=== PATIENT | female | born 1990 | race Caucasian/White ===

== ENCOUNTER 2017-03-06 08:08 | Emergency (ER) | payer OTHER ==
[2017-03-06 08:13] VITALS: BP 127/72; PULSE 81; RESP 18; TEMP 97.5
[2017-03-06] MEDS ORDERED: predniSONE 50 MG TAB PO STA (08:19)
[2017-03-06] MEDS ORDERED: diphenhydrAMINE 50 MG CAP PO STA (08:19)
[2017-03-06] MEDS ORDERED: FAMOTIDINE 20 MG TAB PO STA (08:19)
--- NOTE | 2017-03-06 08:21 | ED ---
Skin/Abscess/FB HPI - General Chief complaint: Skin/Abscess/Foreign Body Stated complaint: RASH ALL OVER Time Seen by Provider: 03/06/17 08:14 Source: patient, RN notes reviewed Mode of arrival: ambulatory Limitations: no limitations - History of Present Illness Initial comments: 27-year-old female presents emergency Department chief complaint of rash. Patient states that since last night and got worse today. Patient states that it is very itchy and has spread. Patient states he look like hives. She denies any new products including soaps, lotions, detergents. Patient states that she was helped by a bonfire last night but she states that she used wood that she didn't having on it and states that nobody else has any symptoms. Patient denies any difficulty breathing or difficulty swallowing. - Related Data Previous Rx's Medication Instructions Recorded diphenhydrAMINE [Benadryl] 50 mg PO QID PRN #20 capsule 03/06/17 methylPREDNISolone [Medrol Dose 4 mg PO DIRECTED #1 pack 03/06/17 Pack] Allergies Allergy/AdvReac Type Severity Reaction Status Date / Time Sulfa (Sulfonamide Allergy Swelling Verified 03/06/17 08:13 Antibiotics) Review of Systems ROS Statement: Those systems with pertinent positive or pertinent negative responses have been documented in the HPI. ROS Other: All systems not noted in ROS Statement are negative. Past Medical History Past Medical History: No Reported History History of Any Multi-Drug Resistant Organisms: None Reported Past Surgical History: Section Past Psychological History: Anxiety, Depression Smoking Status: Never smoker Past Alcohol Use History: None Reported Past Drug Use History: None Reported General Exam Limitations: no limitations General appearance: alert, in no apparent distress Neck exam: Present: normal inspection. Absent: tenderness, meningismus, lymphadenopathy Respiratory exam: Present: normal lung sounds bilaterally. Absent: respiratory distress, wheezes, rales, rhonchi, stridor Cardiovascular Exam: Present: regular rate, normal rhythm, normal heart sounds. Absent: systolic murmur, diastolic murmur, rubs, gallop, clicks GI/Abdominal exam: Present: soft, normal bowel sounds. Absent: distended, tenderness, guarding, rebound, rigid Skin exam: Present: rash (Urticaria noted on upper legs, torso region with some areas of papular type rash) Course Vital Signs 03/06/17 08:09 Temperature 97.5 F L Pulse Rate 81 Respiratory 18 Rate Blood Pressure 127/72 O2 Sat by Pulse 100 Oximetry Medical Decision Making - Medical Decision Making 47-year-old female presented for rash. She appears to be having a mild ALLERGIC reaction and some areas of contact dermatitis which may be related. Patient we given Benadryl and steroids. Return parameters were discussed. Disposition Clinical Impression: Allergic reaction, Contact dermatitis Disposition: HOME SELF-CARE Condition: Stable Instructions: General Allergic Reaction (ED) Additional Instructions: Please return to the Emergency Department if symptoms worsen or any other concerns. Prescriptions: diphenhydrAMINE [Benadryl] 50 mg PO QID PRN #20 capsule PRN Reason: allergic symtpoms methylPREDNISolone [Medrol Dose Pack] 4 mg PO DIRECTED #1 pack Referrals: None,Stated [Primary Care Provider] - 1-2 days Time of Disposition: 08:20
== END 2017-03-06 08:45 | disposition home or self-care (01) ==
LOC: EC 08:08
DX: L23.9 Allergic contact dermatitis, unspecified cause (principal); Z88.2 Allergy status to sulfonamides
CPT/HCPCS: 99282; J7512

== ENCOUNTER 2018-02-04 08:34 | Emergency (ER) | payer OTHER ==
[2018-02-04] MEDS ORDERED: ACETAMINOPHEN TAB 500 MG TAB PO STA (08:39)
[2018-02-04] MEDS ORDERED: IBUPROFEN 600 MG TAB PO STA (08:39)
--- NOTE | 2018-02-04 09:14 | ED ---
ENT HPI - General Chief complaint: ENT Stated complaint: Fever, Sore throat Time Seen by Provider: 02/04/18 08:39 Source: patient, RN notes reviewed, old records reviewed Mode of arrival: ambulatory Limitations: no limitations - History of Present Illness Initial comments: This Patient is a 27-year-old female presents with cough, sore throat, and fevers for the past 2 days. She reports her son had similar symptoms a few weeks ago. Patient relates that she's had some Tylenol earlier today. She denies any vomiting, nausea or diarrhea. She denies any abdominal pain or chest pain. Does report a minor headache. She states that she has had no significant medical history or surgical history. - Related Data Home Medications Medication Instructions Recorded Confirmed Acetaminophen Tab [Tylenol Tab] 1,000 mg PO ONCE PRN 02/04/18 02/04/18 Previous Rx's Medication Instructions Recorded Azithromycin [Zithromax Z-pack] 250 mg PO DIRECTED #6 tab 02/04/18 Allergies Allergy/AdvReac Type Severity Reaction Status Date / Time Sulfa (Sulfonamide Allergy Swelling Verified 02/04/18 08:50 Antibiotics) Review of Systems ROS Statement: Those systems with pertinent positive or pertinent negative responses have been documented in the HPI. ROS Other: All systems not noted in ROS Statement are negative. Past Medical History Past Medical History: No Reported History History of Any Multi-Drug Resistant Organisms: None Reported Past Surgical History: Section Past Psychological History: Anxiety, Depression Smoking Status: Never smoker Past Alcohol Use History: None Reported Past Drug Use History: None Reported General Exam - General Exam Comments Initial Comments: 27-year-old female. Alert and oriented. No acute distress. Limitations: no limitations General appearance: alert Head exam: Present: atraumatic, normocephalic, normal inspection Eye exam: Present: normal appearance, PERRL, EOMI. Absent: scleral icterus, conjunctival injection, periorbital swelling ENT exam: Present: normal exam, mucous membranes moist. Absent: normal oropharynx (Reynaldo erythema. No exudates.) Neck exam: Present: normal inspection, lymphadenopathy. Absent: tenderness, meningismus Respiratory exam: Present: normal lung sounds bilaterally. Absent: respiratory distress, wheezes, rales, rhonchi, stridor Cardiovascular Exam: Present: regular rate, normal rhythm, normal heart sounds. Absent: systolic murmur, diastolic murmur, rubs, gallop, clicks GI/Abdominal exam: Present: soft, normal bowel sounds. Absent: distended, tenderness, guarding, rebound, rigid Extremities exam: Present: normal inspection, full ROM, normal capillary refill. Absent: tenderness, pedal edema, joint swelling, calf tenderness Back exam: Present: normal inspection Neurological exam: Present: alert, oriented X3, CN II-XII intact Course Vital Signs 02/04/18 02/04/18 08:36 09:33 Temperature 100.0 F H 99.1 F Pulse Rate 101 H 65 Respiratory 20 16 Rate Blood Pressure 115/67 110/60 O2 Sat by Pulse 99 99 Oximetry Medical Decision Making - Medical Decision Making 27-year-old female with sore throat and fever and cough for the past 3 days. Her son had similar symptoms. At this time rapid strep and influenza are negative. She didn't appear 101. Was given Motrin and Tylenol. She does feel better at this time. Patient will be started on azithromycin for pharyngitis and upper respiratory infection. Discussed appropriate follow-up with primary care providers. She is given a note for work. All questions answered and return parameters were discussed. - Lab Data Lab Results 02/04/18 Range/Units 08:49 Influenza Type A RNA Not Detected (Not Detectd) Influenza Type B (PCR) Not Detected (Not Detectd) Group A Strep Rapid Negative (Negative) Disposition Clinical Impression: Pharyngitis, Fever Disposition: HOME SELF-CARE Condition: Good Additional Instructions: Patient has a take the medication as directed. Follow-up with primary care physician. Alternate Motrin and Tylenol for fever and pain. Prescriptions: Azithromycin [Zithromax Z-pack] 250 mg PO DIRECTED #6 tab Is patient prescribed a controlled substance at d/c from ED?: No When asked, does pt state using other controlled substances?: No If prescribed controlled substance>3 days was MAPS reviewed?: No If opioid is for acute pain is fill amount 7 days or less?: No Referrals: None,Stated [Primary Care Provider] - 1-2 days Time of Disposition: 09:37
[2018-02-04 09:35] VITALS: BP 110/60; PULSE 65; RESP 16; TEMP 99.1
== END 2018-02-04 09:55 | disposition home or self-care (01) ==
LOC: EC 08:34
DX: J02.9 Acute pharyngitis, unspecified (principal); Z88.2 Allergy status to sulfonamides
CPT/HCPCS: 87081; 87430; 87502; 99284

== ENCOUNTER 2018-03-24 11:50 | Emergency (ER) | payer OTHER ==
[2018-03-24 12:16] VITALS: BP 111/72; PULSE 68; RESP 18; TEMP 98.4
[2018-03-24] MEDS ORDERED: Acetaminophen-Codeine 300-30mg TAB PO STA (12:40)
--- NOTE | 2018-03-24 12:54 | ED ---
General Adult HPI - General Chief complaint: Dental/Oral Stated complaint: DENTAL PAIN Time Seen by Provider: 03/24/18 12:30 Source: patient, RN notes reviewed Mode of arrival: ambulatory Limitations: no limitations - History of Present Illness Initial comments: 28-year-old female presents to the emergency department for a chief complaint of dental pain 3 days. Patient states she cracked her tooth 3 days ago and the pain started then. Patient states she has been trying to get into a dentist but has been unsuccessful. Patient states she feels like she has swelling in her jaw. Patient denies pain or stiffness in the neck. Patient also admits to pain radiating to the ear. Patient denies headache. Patient denies fevers or chills at home. Patient has no other complaints at this time including shortness of breath, chest pain, abdominal pain, nausea or vomiting, headache, or visual changes. - Related Data Previous Rx's Medication Instructions Recorded Acetaminophen-Codeine 300-30mg 1 tab PO Q6HR PRN #10 tablet 03/24/18 [Tylenol #3] Ibuprofen [Motrin] 600 mg PO Q6HR PRN #20 tab 03/24/18 Penicillin V Potassium [Pen Vee K] 500 mg PO Q6H 10 Days tablet 03/24/18 Allergies Allergy/AdvReac Type Severity Reaction Status Date / Time Sulfa (Sulfonamide Allergy Swelling Verified 03/24/18 12:16 Antibiotics) Review of Systems ROS Statement: Those systems with pertinent positive or pertinent negative responses have been documented in the HPI. ROS Other: All systems not noted in ROS Statement are negative. Past Medical History Past Medical History: No Reported History History of Any Multi-Drug Resistant Organisms: None Reported Past Surgical History: Section Past Psychological History: Anxiety, Depression Smoking Status: Never smoker Past Alcohol Use History: Occasional Past Drug Use History: None Reported General Exam Limitations: no limitations General appearance: alert, in no apparent distress Head exam: Present: atraumatic, normocephalic, normal inspection Eye exam: Present: normal appearance ENT exam: Present: normal exam, mucous membranes moist, TM's normal bilaterally , normal external ear exam. Absent: normal oropharynx (patient has a cracked tooth 19. No abscess noted. minor swelling to left mandible.) Neck exam: Present: normal inspection, full ROM. Absent: tenderness, meningismus, lymphadenopathy Respiratory exam: Present: normal lung sounds bilaterally. Absent: respiratory distress, wheezes, rales, rhonchi, stridor Cardiovascular Exam: Present: regular rate, normal rhythm, normal heart sounds. Absent: systolic murmur, diastolic murmur, rubs, gallop, clicks Course Vital Signs 03/24/18 12:14 Temperature 98.4 F Pulse Rate 68 Respiratory 18 Rate Blood Pressure 111/72 O2 Sat by Pulse 99 Oximetry Medical Decision Making - Medical Decision Making 28-year-old female presents to the emergency department for a chief complaint of dental pain 3 days. Patient cracked her tooth 3 days ago. Patient states she has tried Motrin and it is not helping. Patient has minor swelling in the left jaw. No swelling in the neck. Patient has full range of motion of the neck. On exam patient is a cracked tooth 19. No drainable abscess noted. Patient will be given penicillin as well as Motrin for pain. She will be given Tylenol 3 if pain is severe. Patient denies chance of . Patient will follow up with primary care or dentist. She was given the number to the [place] [facility]. She will return to the emergency Department if she has any worsening symptoms. Disposition Clinical Impression: Pain, dental Disposition: HOME SELF-CARE Condition: Good Instructions: Toothache (ED) Additional Instructions: Please take penicillin as directed. Please take Motrin for pain. If pain is severe take Tylenol 3. Follow-up with dentist as soon as possible. Return to the emergency department if you have any worsening symptoms. [facility] dental plan: [address] [place] [address]. Prescriptions: Acetaminophen-Codeine 300-30mg [Tylenol #3] 1 tab PO Q6HR PRN #10 tablet PRN Reason: Pain Ibuprofen [Motrin] 600 mg PO Q6HR PRN #20 tab PRN Reason: Pain Penicillin V Potassium [Pen Vee K] 500 mg PO Q6H 10 Days tablet Is patient prescribed a controlled substance at d/c from ED?: Yes When asked, does pt state using other controlled substances?: No If prescribed controlled substance>3 days was MAPS reviewed?: Prescribed <3 Days If opioid is for acute pain is fill amount 7 days or less?: Yes If Rx opioid, was Start Talking consent form obtained?: Yes Referrals: Radu Whyte DO [STAFF PHYSICIAN] - 1-2 days Time of Disposition: 12:51
== END 2018-03-24 12:58 | disposition home or self-care (01) ==
LOC: EC 11:50
DX: K08.89 Other specified disorders of teeth and supporting structures (principal)
CPT/HCPCS: 99282

== ENCOUNTER 2018-08-20 11:04 | Emergency (ER) | payer OTHER ==
[2018-08-20 11:17] VITALS: BP 111/73; PULSE 93; RESP 18; TEMP 98.1
--- NOTE | 2018-08-20 11:48 | ED ---
General Adult HPI - General Chief complaint: Upper Respiratory Infection Stated complaint: Fever Time Seen by Provider: 08/20/18 11:22 Source: patient, RN notes reviewed Mode of arrival: ambulatory Limitations: no limitations - History of Present Illness Initial comments: Patient 28-year-old female presenting to the emergency room today with chief complaint of cough congestion over the last 10 days. She does admit that her son was diagnosed with strep throat. She states that she had this some sore throat but his had increased sinus congestion and she does admit some pressure ears. Patient admits to sinus headache. Patient does admit to mild cough but states that actually has gotten better. She states she was unable go to work yesterday and called in today. She denies any other complaints or symptoms. Patient denies any recent shortness of breath, chest pain, back pain, abdominal pain, dysuria or hematuria, constipation or diarrhea, visual changes, or any other complaints. - Related Data Previous Rx's Medication Instructions Recorded Amoxicillin/Potassium Clav 1 each PO Q12HR #20 tab 08/20/18 [Augmentin 875-125 Tablet] Fluticasone Propionate [Flonase 1 - 2 spray EA NOSTRIL DAILY 5 08/20/18 Allergy Relief] Days ml Allergies Allergy/AdvReac Type Severity Reaction Status Date / Time Sulfa (Sulfonamide Allergy Swelling Verified 08/20/18 11:15 Antibiotics) Review of Systems ROS Statement: Those systems with pertinent positive or pertinent negative responses have been documented in the HPI. ROS Other: All systems not noted in ROS Statement are negative. Past Medical History Past Medical History: No Reported History History of Any Multi-Drug Resistant Organisms: None Reported Past Surgical History: Section Past Psychological History: Anxiety, Depression Smoking Status: Never smoker Past Alcohol Use History: Occasional Past Drug Use History: None Reported General Exam - General Exam Comments Initial Comments: General: The patient is awake and alert, in no distress, and does not appear acutely ill. Eye: Pupils are equal, round and reactive to light, extra-ocular movements are intact. No nystagmus. There is normal conjunctiva bilaterally. No signs of icterus. Ears, nose, mouth and throat: There are moist mucous membranes and no oral lesions. Tender palpation over the left maxillary sinus. Lungs clear bilaterally. Neck: The neck is supple, there is no tenderness or JVD. Cardiovascular: There is a regular rate and rhythm. No murmur, rub or gallop is appreciated. Respiratory: Lungs are clear to auscultation, respirations are non-labored, breath sounds are equal. No wheezes, stridor, rales, or rhonchi. Musculoskeletal: Normal ROM, no tenderness. Neurological: A&O x 3. CN II-XII intact, There are no obvious motor or sensory deficits. Coordination appears grossly intact. Speech is normal. Skin: Skin is warm and dry and no rashes or lesions are noted. Psychiatric: Cooperative, appropriate mood & affect, normal judgment. Limitations: no limitations Course Vital Signs 08/20/18 11:15 Temperature 98.1 F Pulse Rate 93 Respiratory 18 Rate Blood Pressure 111/73 O2 Sat by Pulse 98 Oximetry Medical Decision Making - Medical Decision Making Patient will be treated for sinus infection started on Flonase, Augmentin. She was also in contact with someone with strep throat recently. She is advised follow family doctor. She is requesting work note. Patient will be discharged home advised return if symptoms increase or worsen. Disposition Clinical Impression: Sinusitis Disposition: HOME SELF-CARE Condition: Good Instructions: Sinusitis (ED) Additional Instructions: Please use medication as discussed. Please follow-up with family doctor in the next 2 days of symptoms have not improved. Please return to emergency room if the symptoms increase or worsen or for any other concerns. Prescriptions: Amoxicillin/Potassium Clav [Augmentin 875-125 Tablet] 1 each PO Q12HR #20 tab Fluticasone Propionate [Flonase Allergy Relief] 1 - 2 spray EA NOSTRIL DAILY 5 Days ml Is patient prescribed a controlled substance at d/c from ED?: No Referrals: None,Stated [Primary Care Provider] - 1-2 days Time of Disposition: 11:48
== END 2018-08-20 12:03 | disposition home or self-care (01) ==
LOC: EC 11:04
DX: J32.9 Chronic sinusitis, unspecified (principal); Z88.2 Allergy status to sulfonamides
CPT/HCPCS: 99283

== ENCOUNTER 2018-10-28 15:21 | Emergency (ER) | payer OTHER ==
[2018-10-28 15:27] VITALS: BP 118/75; PULSE 72; RESP 16; TEMP 98.4
[2018-10-28] MEDS ORDERED: PROPARACAINE 0.5% OPHTH DROPS 15 ML BTL RIGHT EYE STA (16:25)
--- NOTE | 2018-10-28 16:29 | ED ---
General Adult HPI - General Chief complaint: Eye Problems Stated complaint: Eye infection Time Seen by Provider: 10/28/18 15:42 Source: patient, RN notes reviewed Mode of arrival: ambulatory Limitations: no limitations - History of Present Illness Initial comments: Patient is a 28-year-old female who presents emergency department with complaint of right eye discomfort and redness for 5 days. Admits to watery discharge of this eye. She reports that she does wear contacts that are changed monthly. She states that she threw away her last pair and tried using a new pair. She's been wearing her glasses mostly. Denies any redness or swelling of the eyelids. Denies any issues with the left eye. Denies history of corneal ulcers. Patient denies any recent fever, chills, shortness of breath , chest pain, back pain, abdominal pain, nausea or vomiting, numbness or tingling, headaches or visual changes, or any other complaints. - Related Data Previous Rx's Medication Instructions Recorded Amoxicillin/Potassium Clav 1 each PO Q12HR #20 tab 08/20/18 [Augmentin 875-125 Tablet] Fluticasone Propionate [Flonase 1 - 2 spray EA NOSTRIL DAILY 5 08/20/18 Allergy Relief] Days ml Allergies Allergy/AdvReac Type Severity Reaction Status Date / Time Sulfa (Sulfonamide Allergy Swelling Verified 10/28/18 15:27 Antibiotics) Review of Systems ROS Statement: Those systems with pertinent positive or pertinent negative responses have been documented in the HPI. ROS Other: All systems not noted in ROS Statement are negative. Past Medical History Past Medical History: No Reported History History of Any Multi-Drug Resistant Organisms: None Reported Past Surgical History: Section Past Psychological History: Anxiety, Depression Smoking Status: Never smoker Past Alcohol Use History: Occasional Past Drug Use History: None Reported General Exam Limitations: no limitations General appearance: alert, in no apparent distress Head exam: Present: atraumatic, normocephalic Eye exam: Present: PERRL, EOMI, other (Right eye with mild conjunctival injection. Left eye normal.) ENT exam: Present: normal oropharynx Respiratory exam: Present: normal lung sounds bilaterally. Absent: wheezes, rales, rhonchi Cardiovascular Exam: Present: regular rate, normal rhythm Neurological exam: Present: alert, oriented X3 Course Vital Signs 10/28/18 15:24 Temperature 98.4 F Pulse Rate 72 Respiratory 16 Rate Blood Pressure 118/75 O2 Sat by Pulse 99 Oximetry Medical Decision Making - Medical Decision Making Visual acuity testing done by nurse. No foreign body visualized with inspection. Upper eyelid flipped; no foreign body visualized. Fluorescein eye exam of right eye is negative. Patient given note for missing work today. Case discussed in detail with attending physician Dr. Carlosn. Disposition Clinical Impression: Viral conjunctivitis Disposition: HOME SELF-CARE Condition: Good Instructions (If sedation given, give patient instructions): Conjunctivitis (ED ) Additional Instructions: Follow-up with your PCP in 1 to 2 days. Throw away used contacts and contact cases. Do not use contacts until the infection is cleared. Use artificial tears as needed. Return to the emergency department if your symptoms worsen or other concerns. Is patient prescribed a controlled substance at d/c from ED?: No Referrals: None,Stated [Primary Care Provider] - 1-2 days Sarah Saha MD [STAFF PHYSICIAN] - 1-2 days Time of Disposition: 17:44
== END 2018-10-28 18:05 | disposition home or self-care (01) ==
LOC: EC 15:21
DX: B30.9 Viral conjunctivitis, unspecified (principal); Z88.2 Allergy status to sulfonamides
CPT/HCPCS: 99283

== ENCOUNTER 2019-03-07 16:33 | Observation (INO) | payer OTHER ==
[2019-03-07 17:21] LABS: Appearance,Urine Turbid (Clear); Bacteria,Urine Moderate /hpf; Bilirubin,Urine Negative (Negative); Blood,Urine Small (Negative); Budding Yeast,Urine Moderate /hpf; Color,Urine Yellow; Glucose,Urine (UA) Negative (Negative); Ketones,Urine Negative (Negative); Leukocyte Esterase,Urine Large (Negative); Mucus,Urine Rare /hpf; Nitrite,Urine Negative (Negative); Protein,Urine 1+ (Negative); RBC,Urine 65 /hpf (0-5); Specific Gravity,Urine 1.019 (1.001-1.035); Squamous Epithelial Cell,Urine 10 /hpf (0-4); Urobilinogen,Urine <2.0 mg/dL (<2.0); WBC,Urine >182 /hpf (0-5)
--- NOTE | 2019-03-07 17:38 | ED ---
Female Urogenital HPI - General Chief complaint: Urogenital Stated complaint: POSS KIDNEY INFECTION/STONE Time Seen by Provider: 03/07/19 16:55 Source: patient Mode of arrival: ambulatory Limitations: no limitations - History of Present Illness Initial comments: 29 year old female presenting today for chief complaint dysuria urgency frequency 1 week. Patient states she is also began developing right flank pain she states she was nauseous and had episode of vomiting this morning. Patient states that she has had an on-and-off fever. Patient is concerned she had a kidney stone. Remaining review of system negative. Patient denies any vaginal discharge or pelvic pain with sex. Patient denies any significant abdominal pain. Remaining review of system negative Last Menstrual Period: 02/06/19 - Related Data Home Medications Medication Instructions Recorded Confirmed No Known Home Medications 03/07/19 03/07/19 Allergies Allergy/AdvReac Type Severity Reaction Status Date / Time Sulfa (Sulfonamide Allergy Swelling Verified 03/07/19 17:40 Antibiotics) Review of Systems ROS Statement: Those systems with pertinent positive or pertinent negative responses have been documented in the HPI. ROS Other: All systems not noted in ROS Statement are negative. Past Medical History Past Medical History: No Reported History History of Any Multi-Drug Resistant Organisms: None Reported Past Surgical History: Section Past Psychological History: Anxiety, Depression Smoking Status: Never smoker Past Alcohol Use History: Occasional Past Drug Use History: None Reported General Exam - General Exam Comments Initial Comments: General: The patient is awake and alert, in no distress Eye: Pupils are equal, round and reactive to light, extra-ocular movements are intact. No nystagmus. There is normal conjunctiva bilaterally. No signs of icterus. Ears, nose, mouth and throat: There are moist mucous membranes and no oral lesions. Neck: The neck is supple, there is no tenderness or JVD. Cardiovascular: There is a regular rate and rhythm. No murmur, rub or gallop is appreciated. Respiratory: Lungs are clear to auscultation, respirations are non-labored, breath sounds are equal. No wheezes, stridor, rales, or rhonchi. Gastrointestinal: Soft, non-distended, non-tender abdomen without masses or organomegaly noted. There is no rebound or guarding present. No CVA tenderness. Musculoskeletal: Normal ROM, no tenderness. Strength 5/5. Sensation intact. Pulses equal bilaterally 2+. Neurological: A&O x 3. CN II-XII intact, There are no obvious motor or sensory deficits. Coordination appears grossly intact. Speech is normal. Skin: Skin is warm and dry and no rashes or lesions are noted. Psychiatric: Cooperative, appropriate mood & affect, normal judgment. Limitations: no limitations Course Vital Signs 03/07/19 03/07/19 16:48 19:07 Temperature 98.8 F 98.3 F Pulse Rate 63 67 Respiratory 18 18 Rate Blood Pressure 110/65 114/74 O2 Sat by Pulse 99 100 Oximetry Medical Decision Making - Medical Decision Making 29-year-old female presenting for dysuria times a week, right-sided flank pain. Fever. Urinalysis concerning for possible septic stone. CT revealed a 2 mm calculi of the right ureter this correlates clinically. Dr. Rice was contacted by attending provider Dr. Carlson, he recommended admission- With the concern of patient having history of fever and this developing into sepsis from infected uroliathisis. Patient is agreeable to admission. Patient does not appear toxic at this time. Patient transferred to the floor appearing well. Patient was admitted to medicine, Dr Barrios with D[facility] on consult. - Lab Data Result diagrams: 03/07/19 17:50 03/07/19 17:50 Lab Results 03/07/19 03/07/19 03/07/19 Range/Units 17:05 17:05 17:50 WBC 11.0 H (3.8-10.6) k/uL RBC 4.34 (3.80-5.40) m/uL Hgb 13.5 (11.4-16.0) gm/dL Hct 40.2 (34.0-46.0) % MCV 92.5 (80.0-100.0) fL MCH 31.1 (25.0-35.0) pg MCHC 33.6 (31.0-37.0) g/dL RDW 13.6 (11.5-15.5) % Plt Count 301 (150-450) k/uL Neutrophils % 67 % Lymphocytes % 22 % Monocytes % 7 % Eosinophils % 1 % Basophils % 0 % Neutrophils # 7.4 (1.3-7.7) k/uL Lymphocytes # 2.4 (1.0-4.8) k/uL Monocytes # 0.8 (0-1.0) k/uL Eosinophils # 0.1 (0-0.7) k/uL Basophils # 0.0 (0-0.2) k/uL Sodium (137-145) mmol/L Potassium (3.5-5.1) mmol/L Chloride (98-107) mmol/L Carbon Dioxide (22-30) mmol/L Anion Gap mmol/L BUN (7-17) mg/dL Creatinine (0.52-1.04) mg/dL Est GFR (CKD-EPI)AfAm (>60 ml/min/1.73 sqM) Est GFR (CKD-EPI)NonAf (>60 ml/min/1.73 sqM) Glucose (74-99) mg/dL Calcium (8.4-10.2) mg/dL Total Bilirubin (0.2-1.3) mg/dL AST (14-36) U/L ALT (9-52) U/L Alkaline Phosphatase (38-126) U/L Total Protein (6.3-8.2) g/dL Albumin (3.5-5.0) g/dL Urine Color Yellow Urine Appearance Turbid H (Clear) Urine pH 6.0 (5.0-8.0) Ur Specific Kinsley 1.019 (1.001-1.035) Urine Protein 1+ H (Negative) Urine Glucose (UA) Negative (Negative) Urine Ketones Negative (Negative) Urine Blood Small H (Negative) Urine Nitrite Negative (Negative) Urine Bilirubin Negative (Negative) Urine Urobilinogen <2.0 (<2.0) mg/dL Ur Leukocyte Esterase Large H (Negative) Urine RBC 65 H (0-5) /hpf Urine WBC >182 H (0-5) /hpf Urine WBC Clumps Many H (None) /hpf Ur Squamous Epith Cells 10 H (0-4) /hpf Urine Bacteria Moderate H (None) /hpf Urine Mucus Rare H (None) /hpf Urine Yeast (Budding) Moderate H (None) /hpf Urine HCG, Qual Not Detected (Not Detectd) 03/07/19 Range/Units 17:50 WBC (3.8-10.6) k/uL RBC (3.80-5.40) m/uL Hgb (11.4-16.0) gm/dL Hct (34.0-46.0) % MCV (80.0-100.0) fL MCH (25.0-35.0) pg MCHC (31.0-37.0) g/dL RDW (11.5-15.5) % Plt Count (150-450) k/uL Neutrophils % % Lymphocytes % % Monocytes % % Eosinophils % % Basophils % % Neutrophils # (1.3-7.7) k/uL Lymphocytes # (1.0-4.8) k/uL Monocytes # (0-1.0) k/uL Eosinophils # (0-0.7) k/uL Basophils # (0-0.2) k/uL Sodium 144 (137-145) mmol/L Potassium 4.3 (3.5-5.1) mmol/L Chloride 108 H (98-107) mmol/L Carbon Dioxide 25 (22-30) mmol/L Anion Gap 11 mmol/L BUN 10 (7-17) mg/dL Creatinine 0.58 (0.52-1.04) mg/dL Est GFR (CKD-EPI)AfAm >90 (>60 ml/min/1.73 sqM) Est GFR (CKD-EPI)NonAf >90 (>60 ml/min/1.73 sqM) Glucose 100 H (74-99) mg/dL Calcium 9.3 (8.4-10.2) mg/dL Total Bilirubin 0.4 (0.2-1.3) mg/dL AST 17 (14-36) U/L ALT 26 (9-52) U/L Alkaline Phosphatase 64 (38-126) U/L Total Protein 6.7 (6.3-8.2) g/dL Albumin 3.9 (3.5-5.0) g/dL Urine Color Urine Appearance (Clear) Urine pH (5.0-8.0) Ur Specific Kinsley (1.001-1.035) Urine Protein (Negative) Urine Glucose (UA) (Negative) Urine Ketones (Negative) Urine Blood (Negative) Urine Nitrite (Negative) Urine Bilirubin (Negative) Urine Urobilinogen (<2.0) mg/dL Ur Leukocyte Esterase (Negative) Urine RBC (0-5) /hpf Urine WBC (0-5) /hpf Urine WBC Clumps (None) /hpf Ur Squamous Epith Cells (0-4) /hpf Urine Bacteria (None) /hpf Urine Mucus (None) /hpf Urine Yeast (Budding) (None) /hpf Urine HCG, Qual (Not Detectd) Disposition Clinical Impression: Nephrolithiasis, UTI (urinary tract infection), Leukocytosis Narrative: Infected urolithiasis Disposition: ADMITTED IP TO THIS HOSP Condition: Stable Is patient prescribed a controlled substance at d/c from ED?: No Time of Disposition: 19:52
[2019-03-07 18:09] LABS: Basophils % (A) 0 %; Eosinophils # (A) 0.1 k/uL (0-0.7); Eosinophils % (A) 1 %; HCT 40.2 % (34.0-46.0); HGB 13.5 gm/dL (11.4-16.0); Lymphocytes # (A) 2.4 k/uL (1.0-4.8); Lymphocytes % (A) 22 %; MCH 31.1 pg (25.0-35.0); MCHC 33.6 g/dL (31.0-37.0); MCV 92.5 fL (80.0-100.0); Mean Platelet Volume 7.4; Monocytes # (A) 0.8 k/uL (0-1.0); Monocytes % (A) 7 %; Neutrophils # (A) 7.4 k/uL (1.3-7.7); Neutrophils % (A) 67 %; Platelet Count 301 k/uL (150-450); RBC 4.34 m/uL (3.80-5.40); RDW 13.6 % (11.5-15.5)
[2019-03-07 18:19] LABS: ALT 26 U/L (9-52); AST 17 U/L (14-36); African American GFR (CKD) >90 (>60 ml/min/1.73 sqM); Albumin 3.9 g/dL (3.5-5.0); Alkaline Phosphatase 64 U/L (38-126); Anion Gap 11 mmol/L; Blood Urea Nitrogen 10 mg/dL (7-17); Calcium 9.3 mg/dL (8.4-10.2); Carbon Dioxide 25 mmol/L (22-30); Chloride 108 mmol/L (98-107); Glucose 100 mg/dL (74-99); Potassium 4.3 mmol/L (3.5-5.1); Sodium 144 mmol/L (137-145); Total Bilirubin 0.4 mg/dL (0.2-1.3); Total Protein 6.7 g/dL (6.3-8.2)
[2019-03-07] MEDS ORDERED: cefTRIAXone IN SWFI 1,000 MG/10 ML SYRINGE IVP STA (18:37)
--- NOTE | 2019-03-07 18:52 | CT ---
EXAMINATION TYPE: CT abdomen pelvis wo con DATE OF EXAM: 03/07/2019 COMPARISON: None HISTORY: Right sided flank pain. CT DLP: 406.7 mGycm Automated exposure control for dose reduction was used. TECHNIQUE: Helical acquisition of images was performed from the lung bases through the pelvis. FINDINGS: LUNG BASES: No significant abnormality is appreciated. LIVER/GB: No acute process. Cholelithiasis documented. PANCREAS: No significant abnormality is seen. SPLEEN: No significant abnormality is seen. ADRENALS: No significant abnormality is seen. KNEES AND URETERS AND BLADDER: There is a 2 mm calcification related to the distal right ureter. Ther e is, however, no vesna hydronephrosis or definite hydroureter. There are a few scattered bilateral 1 mm nonobstructing renal calcifications. FREE AIR: No free air is visualized. RETROPERITONEAL ADENOPATHY: None visualized REPRODUCTIVE ORGANS: No significant abnormality is seen URINARY BLADDER: No significant abnormality is seen. PELVIC ADENOPATHY: None visualized. OSSEOUS STRUCTURES: No significant abnormality is seen. BOWEL: No significant abnormality is seen. Appendix is negative. OTHER: There is a mild/moderate volume of dependent fluid within the peritoneal cavity of the pelvis, IMPRESSION: 1. MILD/MODERATE VOLUME OF PELVIC FLUID, LIKELY PHYSIOLOGIC. 2. RIGHT HEMIPELVIC 2 MM CALCIFICATION, WHICH COULD REPRESENT DISTAL RIGHT URETERAL CALCIFICATION. NO HYDROURETER OR HYDRONEPHROSIS.
[2019-03-07] MEDS ORDERED: NALOXONE 0.4 MG/ML 1 ML VIAL IV PRN (19:30)
[2019-03-07] MEDS ORDERED: KETOROLAC 30 MG/ML 1 ML VIAL IVP PRN (19:30)
[2019-03-07] MEDS ORDERED: ONDANSETRON 4 MG/2 ML VIAL IVP PRN (19:30)
[2019-03-07] MEDS ORDERED: ACETAMINOPHEN TAB 325 MG TAB PO PRN (19:51)
[2019-03-07] MEDS: SODIUM CHLORIDE 0.9% 1,000 ML IV SCH (20:09)
[2019-03-07 22:27] VITALS: BMI 24.3
[2019-03-08 06:07] VITALS: RESP 16
--- NOTE | 2019-03-08 09:40 | P.GSCN ---
History of Present Illness Consult date: 03/08/19 History of present illness: I was asked to see this 29-year-old female because of a probable ureteral stone and urinary infection. She came to the emergency room with a week to 2 history of dysuria frequency and some right flank pain. She is evaluated in the emergency room and found to have a probable 2 mm distal right ureteral stone and a 1 mm nonobstructing renal stone. The distal ureteral stone on the right did not show any evidence of hydronephrosis. She was admitted because of the symptoms and possible urinary tract infection with sepsis. Her white count was 11,000. She has been afebrile. He is feeling much better this morning after the antibiotics. Her pressure and dysuria has gone. I reviewed the CAT scan and there is a 1 mm stone in the kidney and a probable distal ureteral stone on the right however due to technical consideration it is difficult to follow the ureter into the bladder. She has a has no history of kidney stones. Her mother may have had a stone. Review of Systems All systems: negative - Constitutional Denies fever, Denies weight loss - EENT Eyes: denies blurred vision Ears, nose, mouth and throat: Denies dysphagia - Cardiovascular Denies chest pain, Denies shortness of breath - Respiratory Denies cough, Denies 7 - Gastrointestinal Reports as per HPI - Genitourinary Genitourinary: Denies dysuria, Denies hematuria - Integumentary Denies rash, Denies unusual bruising - Neurological Denies headaches, Denies syncope - Hematologic/Lymphatic Denies easy bleeding, Denies easy bruising Past Medical History Past Medical History: No Reported History History of Any Multi-Drug Resistant Organisms: None Reported Past Surgical History: Section Past Anesthesia/Blood Transfusion Reactions: No Reported Reaction Past Psychological History: Anxiety, Depression Smoking Status: Never smoker Past Alcohol Use History: Occasional Past Drug Use History: Marijuana Additional Drug Use History / Comment(s): pt states she smoked marijuana 1 time to help with right flank pain recently - Past Family History Mother Additional Family Medical History / Comment(s): heart murmur Father Family Medical History: No Reported History Medications and Allergies Home Medications Medication Instructions Recorded Confirmed Type No Known Home Medications 03/07/19 03/07/19 History Allergies Allergy/AdvReac Type Severity Reaction Status Date / Time Sulfa (Sulfonamide Allergy Swelling Verified 03/07/19 17:40 Antibiotics) Surgical - Exam Vital Signs Temp Pulse Resp BP Pulse Ox 98.8 F 63 18 110/65 99 03/07/19 16:48 03/07/19 16:48 03/07/19 16:48 03/07/19 16:48 03/07/19 16:48 - General well developed, well nourished, no distress - Eyes PERRL - ENT no hearing loss - Neck no masses - Respiratory normal expansion, normal respiratory effort - Cardiovascular Rhythm: regular - Abdomen Abdomen: soft, non tender - Integumentary no rash, no growths - Neurologic normal coordination, normal sensation - Musculoskeletal normal posture - Psychiatric oriented to time, oriented to person, oriented to place, speech is normal, memory intact Results - Labs 03/07/19 17:50 03/07/19 17:50 Abnormal Lab Results - Last 24 Hours (Table) 03/07/19 03/07/19 03/07/19 Range/Units 17:05 17:50 17:50 WBC 11.0 H (3.8-10.6) k/uL Chloride 108 H (98-107) mmol/L Glucose 100 H (74-99) mg/dL Urine Appearance Turbid H (Clear) Urine Protein 1+ H (Negative) Urine Blood Small H (Negative) Ur Leukocyte Esterase Large H (Negative) Urine RBC 65 H (0-5) /hpf Urine WBC >182 H (0-5) /hpf Urine WBC Clumps Many H (None) /hpf Ur Squamous Epith Cells 10 H (0-4) /hpf Urine Bacteria Moderate H (None) /hpf Urine Mucus Rare H (None) /hpf Urine Yeast (Budding) Moderate H (None) /hpf Microbiology - Last 24 Hours (Table) 03/07/19 17:05 Urine Culture - Preliminary Urine,Voided Diabetes panel 03/07/19 Range/Units 17:50 Sodium 144 (137-145) mmol/L Potassium 4.3 (3.5-5.1) mmol/L Chloride 108 H (98-107) mmol/L Carbon Dioxide 25 (22-30) mmol/L BUN 10 (7-17) mg/dL Creatinine 0.58 (0.52-1.04) mg/dL Glucose 100 H (74-99) mg/dL Calcium 9.3 (8.4-10.2) mg/dL AST 17 (14-36) U/L ALT 26 (9-52) U/L Alkaline Phosphatase 64 (38-126) U/L Total Protein 6.7 (6.3-8.2) g/dL Albumin 3.9 (3.5-5.0) g/dL Calcium panel 03/07/19 Range/Units 17:50 Calcium 9.3 (8.4-10.2) mg/dL Albumin 3.9 (3.5-5.0) g/dL Pituitary panel 03/07/19 Range/Units 17:50 Sodium 144 (137-145) mmol/L Potassium 4.3 (3.5-5.1) mmol/L Chloride 108 H (98-107) mmol/L Carbon Dioxide 25 (22-30) mmol/L BUN 10 (7-17) mg/dL Creatinine 0.58 (0.52-1.04) mg/dL Glucose 100 H (74-99) mg/dL Calcium 9.3 (8.4-10.2) mg/dL Adrenal panel 03/07/19 Range/Units 17:50 Sodium 144 (137-145) mmol/L Potassium 4.3 (3.5-5.1) mmol/L Chloride 108 H (98-107) mmol/L Carbon Dioxide 25 (22-30) mmol/L BUN 10 (7-17) mg/dL Creatinine 0.58 (0.52-1.04) mg/dL Glucose 100 H (74-99) mg/dL Calcium 9.3 (8.4-10.2) mg/dL Total Bilirubin 0.4 (0.2-1.3) mg/dL AST 17 (14-36) U/L ALT 26 (9-52) U/L Alkaline Phosphatase 64 (38-126) U/L Total Protein 6.7 (6.3-8.2) g/dL Albumin 3.9 (3.5-5.0) g/dL - Imaging CT scan - abdomen: report reviewed, image reviewed CT scan - pelvis: report reviewed, image reviewed Assessment and Plan Assessment: Impression: Probable urinary tract infection. Probable distal right ureteral stone. Recommendations: The patient symptomatically seems to be improved. From a urologic standpoint she can be discharged home and follow in my office in one week. She will need to be eventually placed on culture specific antibiotics to treat the urine infection. She's been instructed to the symptoms worsen or a fever develops she needs to contact us.
[2019-03-08] MEDS: SODIUM CHLORIDE 0.9% 1,000 ML IV SCH (11:58)
[2019-03-08 12:44] VITALS: BP 103/67; PULSE 60; TEMP 98
--- NOTE | 2019-03-08 23:25 | P.HPIM ---
History of Present Illness H&P Date: 03/08/19 Chief Complaint: Abdominal pain Patient is a 29-year-old female with known history of anxiety/depression, previous history of UTIs came to ER with the complaints of dysuria and urinary frequency for the past 1 week. Patient is also began having right flank pain. Patient is also having nausea and episodes of vomiting. Patient has been febrile and off at home. Patient was found to have a positive in the ER and was started on antibiotics in the form of ceftriaxone. Urine culture was sent. Denied any complaints of vaginal discharge. Denied any unprotected sex. No com plains of chest pain or shortness of breath. Denied any recent illnesses. No history of renal stones in the past. CT of abdomen pelvis showed probable 2 mm distal right ureteral stone and a 1 mL nonobstructing renal stone. No evidence of hydronephrosis. WBC 11. Review of Systems Constitutional: Patient denies any fever or chills . No generalized weakness or weight loss. Abdomen: Patient denied nausea vomiting and diarrhea . Patient does have lower abdominal and right flank abdominal pain. Cardiovascular: Patient denies any chest pain or short of breath no palpitations. Respiratory: patient denied any cough is from production. No shortness of breath Neurologic: Patient denied any numbness or tingling headache. Musculoskeletal: Patient denies any complaints of joint swelling or deformity. Skin: Negative Psychiatric: Negative Endocrine: No heat or cold intolerance. No recent weight gain. Genitourinary: Does have dysuria. No hematuria.. All other 14 point ROS negative except the above Past Medical History Past Medical History: No Reported History History of Any Multi-Drug Resistant Organisms: None Reported Past Surgical History: Section Past Anesthesia/Blood Transfusion Reactions: No Reported Reaction Past Psychological History: Anxiety, Depression Smoking Status: Never smoker Past Alcohol Use History: Occasional Past Drug Use History: Marijuana Additional Drug Use History / Comment(s): pt states she smoked marijuana 1 time to help with right flank pain recently - Past Family History Mother Additional Family Medical History / Comment(s): heart murmur Father Family Medical History: No Reported History Medications and Allergies Home Medications Medication Instructions Recorded Confirmed Type Ciprofloxacin HCl [Cipro] 500 mg PO Q12H 7 Days #14 tab 03/08/19 Rx Ibuprofen [Motrin] 600 mg PO Q8HR PRN #20 tab 03/08/19 Rx Allergies Allergy/AdvReac Type Severity Reaction Status Date / Time Sulfa (Sulfonamide Allergy Swelling Verified 03/07/19 17:40 Antibiotics) Physical Exam Vitals: Vital Signs Temp Pulse Pulse Resp BP BP Pulse Ox 03/08/19 08:24 97.8 F 50 L 16 100/67 98 03/08/19 01:00 98.0 F 63 16 107/70 98 03/07/19 22:18 98.5 F 61 18 105/66 100 03/07/19 21:12 98.2 F 79 16 111/73 99 03/07/19 19:07 98.3 F 67 18 114/74 100 03/07/19 16:48 98.8 F 63 18 110/65 99 Intake and Output 03/07/19 03/08/19 03/08/19 22:59 06:59 14:59 Output Total 400 Balance -400 Output: Urine 400 Other: Voiding Method Toilet Toilet Weight 66.633 kg PHYSICAL EXAMINATION: Patient is lying in the bed comfortably, no acute distress, awake alert and oriented.. HEENT: Normocephalic. Neck is supple. Pupils reactive. Nostrils clear. Oral cavity is moist. Ears reveal no drainage. Neck reveals no JVD, carotid bruits, or thyromegaly. CHEST EXAMINATION: Trachea is central. Symmetrical expansion. Lung beckwith clear to auscultation and percussion. CARDIAC: Normal S1, S2 with no gallops. No murmurs ABDOMEN: Soft. Right flank tenderness. Bowel sounds normal. No organomegaly. No abdominal bruits. Extremities: reveal no edema. No clubbing or cyanosis Neurologically awake, alert, oriented x3 with well-coordinated movements. No focal deficits noted Skin: No rash or skin lesions. Psychiatric: Coperative. Nonsuicidal Musculoskeletal: No joint swelling or deformity. Normal range of motion. Results CBC & Chem 7: 03/07/19 17:50 03/07/19 17:50 Labs: Abnormal Lab Results - Last 24 Hours (Table) 03/07/19 03/07/19 03/07/19 Range/Units 17:05 17:50 17:50 WBC 11.0 H (3.8-10.6) k/uL Chloride 108 H (98-107) mmol/L Glucose 100 H (74-99) mg/dL Urine Appearance Turbid H (Clear) Urine Protein 1+ H (Negative) Urine Blood Small H (Negative) Ur Leukocyte Esterase Large H (Negative) Urine RBC 65 H (0-5) /hpf Urine WBC >182 H (0-5) /hpf Urine WBC Clumps Many H (None) /hpf Ur Squamous Epith Cells 10 H (0-4) /hpf Urine Bacteria Moderate H (None) /hpf Urine Mucus Rare H (None) /hpf Urine Yeast (Budding) Moderate H (None) /hpf Microbiology - Last 24 Hours (Table) 03/07/19 17:05 Urine Culture - Preliminary Urine,Voided Thrombosis Risk Factor Assmnt - DVT/VTE Prophylaxis DVT/VTE Prophylaxis: Pharmacologic Prophylaxis ordered - Choose All That Apply Any of the Below Risk Factors Present?: No Other Risk Factors: No Thrombosis Risk Factor Assessment Level: Very Low Risk Assessment and Plan Assessment: Acute urinary tract infection. Possible pyelonephritis 2 mm nonobstructing right ureteral stone. Anxiety stress depression Dysuria secondary to urinary tract infection DVT prophylaxis plan: Patient will be continued on IV hydration and antibiotics in the form of ceftriaxone. Follow-up urine culture report. Urology was consulted due to ureteral stone. No surgical recommendation at this time. Follow-up in the urology clinic in a week. Further conditions based on the clinical course. Time with Patient: Greater than 30
--- NOTE | 2019-03-08 23:28 | P.DS ---
Providers Date of admission: 03/07/19 19:51 Expected date of discharge: 03/08/19 Attending physician: Tom Linares Consults: 03/08/19 10:24 Consult Physician Routine Consulting Provider: Ivan Patrick Consult Reason/Comments: kidney stone Do you want consulting provider notified?: Already Contacted Primary care physician: Stated None Hospital Course: Discharge diagnosis Acute pyelonephritis 2 mm nonobstructing right ureteral stone. No hydronephrosis. Anxiety stress depression Dysuria secondary to urinary tract infection DVT prophylaxis Hospital course Patient is a 29-year-old female with known history of anxiety/depression, previous history of UTIs came to ER with the complaints of dysuria and urinary frequency for the past 1 week. Patient is also began having right flank pain. Patient is also having nausea and episodes of vomiting. Patient has been febrile and off at home. Patient was found to have a positive in the ER and was started on antibiotics in the form of ceftriaxone. Urine culture was sent. Denied any complaints of vaginal discharge. Denied any unprotected sex. No complains of chest pain or shortness of breath. Denied any recent illnesses. No history of renal stones in the past. CT of abdomen pelvis showed probable 2 mm distal right ureteral stone and a 1 mL nonobstructing renal stone. No evidence of hydronephrosis. WBC 11. Patient will be continued on IV hydration and antibiotics in the form of ceftriaxone. Follow-up urine culture report. Urology was consulted due to ureteral stone. No surgical recommendation at this time. Follow-up in the urology clinic in a week. Patient will be discharged home with antibiotics in the form of ciprofloxacin and final antibiotic recommendations pending urine cultures upon follow-up with neurology clinic. Patient did improve symptomatically. No complaints of dysuria or hematuria. Tolerating oral diet. He got to be discharged home. PHYSICAL EXAMINATION: Patient is lying in the bed comfortably, no acute distress, awake alert and oriented.. HEENT: Normocephalic. Neck is supple. Pupils reactive. Nostrils clear. Oral cavity is moist. Ears reveal no drainage. Neck reveals no JVD, carotid bruits, or thyromegaly. CHEST EXAMINATION: Trachea is central. Symmetrical expansion. Lung beckwith clear to auscultation and percussion. CARDIAC: Normal S1, S2 with no gallops. No murmurs ABDOMEN: Soft. Bowel sounds normal. No organomegaly. No abdominal bruits. Extremities: reveal no edema. No clubbing or cyanosis Neurologically awake, alert, oriented x3 with well-coordinated movements. No focal deficits noted Skin: No rash or skin lesions. Psychiatric: Coperative. Nonsuicidal Musculoskeletal: No joint swelling or deformity. Normal range of motion. Discharge vitals reviewed. Patient Condition at Discharge: Stable Plan - Discharge Summary Discharge Rx Participant: Yes New Discharge Prescriptions: New Ciprofloxacin HCl [Cipro] 500 mg PO Q12H 7 Days #14 tab Ibuprofen [Motrin] 600 mg PO Q8HR PRN #20 tab PRN Reason: Pain Discharge Medication List Ciprofloxacin HCl [Cipro] 500 mg PO Q12H 7 Days #14 tab 03/08/19 [Rx] Ibuprofen [Motrin] 600 mg PO Q8HR PRN #20 tab 03/08/19 [Rx] Follow up Appointment(s)/Referral(s): None,Stated [Primary Care Provider] - 1-2 days Patient Instructions/Handouts: Kidney Stones (DC) Discharge Disposition: HOME SELF-CARE
== END 2019-03-08 16:38 | disposition home or self-care (01) ==
LOC: EC 16:33 → 6PED 19:51
PROVIDERS: ADMIT Internal Medicine; ATTEND Internal Medicine
DX: N10 Acute pyelonephritis (principal); N20.2 Calculus of kidney with calculus of ureter; F32.9 Major depressive disorder, single episode, unspecified; F41.9 Anxiety disorder, unspecified; Z88.2 Allergy status to sulfonamides; Z87.440 Personal history of urinary (tract) infections; Z87.442 Personal history of urinary calculi
CPT/HCPCS: 96365; 96366; 96375 ×2; 96361; 99284; 36415; 80053; 85025; 81001; 81025; 87086; 87077; 87186; 74176; G0378 ×2; J2405; J0696 ×2; J1885

== ENCOUNTER 2019-06-26 14:13 | Emergency (ER) | payer OTHER ==
[2019-06-26 14:41] VITALS: RESP 16; TEMP 98.3
[2019-06-26] MEDS ORDERED: ONDANSETRON 4 MG/2 ML VIAL IVP STA (15:15)
[2019-06-26] MEDS ORDERED: KETOROLAC 30 MG/ML 1 ML VIAL IVP STA (15:15)
[2019-06-26] MEDS ORDERED: SODIUM CHLORIDE 0.9% 1,000 ML IV STA (15:15)
[2019-06-26 15:27] LABS: Appearance,Urine Clear (Clear); Basophils # (A) 0.1 k/uL (0-0.2); Basophils % (A) 1 %; Bilirubin,Urine Negative (Negative); Blood,Urine Negative (Negative); Color,Urine Yellow; Eosinophils # (A) 0.1 k/uL (0-0.7); Eosinophils % (A) 1 %; Glucose,Urine (UA) Negative (Negative); HCT 47.3 % (34.0-46.0); Ketones,Urine Negative (Negative); Leukocyte Esterase,Urine Negative (Negative); Lymphocytes % (A) 22 %; MCH 30.6 pg (25.0-35.0); MCHC 31.6 g/dL (31.0-37.0); MCV 96.7 fL (80.0-100.0); Mean Platelet Volume 6.5; Monocytes # (A) 0.7 k/uL (0-1.0); Monocytes % (A) 8 %; Neutrophils % (A) 66 %; Nitrite,Urine Negative (Negative); Platelet Count 280 k/uL (150-450); Protein,Urine Negative (Negative); RBC 4.89 m/uL (3.80-5.40); RDW 12.9 % (11.5-15.5); Specific Gravity,Urine 1.011 (1.001-1.035); Urobilinogen,Urine <2.0 mg/dL (<2.0)
[2019-06-26 15:35] LABS: African American GFR (CKD) >90 (>60 ml/min/1.73 sqM); Albumin 4.3 g/dL (3.5-5.0); Anion Gap 7 mmol/L; Blood Urea Nitrogen 9 mg/dL (7-17); Calcium 9.5 mg/dL (8.4-10.2); Carbon Dioxide 26 mmol/L (22-30); Chloride 106 mmol/L (98-107); Glucose 92 mg/dL (74-99); Sodium 139 mmol/L (137-145); Total Bilirubin 0.5 mg/dL (0.2-1.3); Total Protein 7.2 g/dL (6.3-8.2)
[2019-06-26 15:36] LABS: ALT 115 U/L (9-52); AST 37 U/L (14-36); Alkaline Phosphatase 60 U/L (38-126)
--- NOTE | 2019-06-26 16:21 | US ---
EXAMINATION TYPE: US gallbladder DATE OF EXAM: 06/26/2019 COMPARISON: CT, US CLINICAL HISTORY: pain. epigastric pain radiating to back, nausea, change in bowel habits EXAM MEASUREMENTS: Liver Length: 15.7 cm Gallbladder Wall: 0.2 cm CBD: 0.4 cm Right Kidney: 11.4 x 5.7 x 3.8 cm Pancreas: wnl Liver: wnl Gallbladder: nonmobile shadowing stone seen in neck = 1.7 x 1.2 x 0.7cm, shadowing mobile stone note d mid lumen, shadowing stone seen in fundus Evidence for sonographic Verma's sign: not at time of US CBD: wnl Right Kidney: wnl IMPRESSION: Multiple gallstones
--- NOTE | 2019-06-26 17:11 | ED ---
Abdominal Pain HPI - General Chief Complaint: Abdominal Pain Stated Complaint: Abd Pain Source: patient Mode of arrival: ambulatory Limitations: no limitations - History of Present Illness Initial Comments: The patient is a 29-year-old female with past history of gallstones or presents emergency room with complaint of right upper quadrant abdominal pain. The patient states that she was diagnosed with gallstones in 2012. She followed up with a surgeon and had a date plan for her surgery. States she has been and had a child. Her abdominal pain resolved and she hasn't had symptoms for several years. As of past 4 months the patient began once again having right upper quadrant pain. It is exacerbated by food intake. She admits to associated nausea without vomiting. Denies any back or flank pain. Denies any changes in her urination to include dysuria, hematuria or difficulty voiding. Denies any changes in her bowel movements including diarrhea, constipa tion, melanotic stools or hematochezia. Does report that there is a possibility she could be . Denies any fevers or chills. There are no other alleviating, precipitating or modifying factors - Related Data Previous Rx's Medication Instructions Recorded Hydrocodone/Acetaminophen [[place] 1 tab PO Q6HR PRN #12 tab 06/26/19 5-325] Ondansetron Odt [Zofran Odt] 4 mg PO Q8HR PRN #10 tab 06/26/19 Allergies Allergy/AdvReac Type Severity Reaction Status Date / Time Sulfa (Sulfonamide Allergy Swelling Verified 06/26/19 15:09 Antibiotics) Review of Systems ROS Statement: Those systems with pertinent positive or pertinent negative responses have been documented in the HPI. ROS Other: All systems not noted in ROS Statement are negative. Past Medical History Past Medical History: No Reported History History of Any Multi-Drug Resistant Organisms: None Reported Past Surgical History: Section Past Anesthesia/Blood Transfusion Reactions: No Reported Reaction Past Psychological History: Anxiety, Depression Smoking Status: Never smoker Past Alcohol Use History: Occasional Past Drug Use History: Marijuana - Past Family History Mother Additional Family Medical History / Comment(s): heart murmur Father Family Medical History: No Reported History General Exam Limitations: no limitations Course Vital Signs 06/26/19 06/26/19 14:36 17:42 Temperature 98.3 F 98.3 F Pulse Rate 55 L 70 Respiratory 16 16 Rate Blood Pressure 104/69 146/72 O2 Sat by Pulse 100 99 Oximetry Medical Decision Making - Medical Decision Making Upon arrival the patient is placed into room 19. A thorough history and physical exam was performed. Peripheral IV is established with the patient is given 30 mg of Toradol, formal grams of Zofran and a liter of normal saline. Laboratory studies were conducted and the patient was sent for culture ultrasound. Laboratory studies demonstrates a elevation of the patient's AST and ALT. AST is 37 an ALT is 115. UA is negative. Urine hCG is negative. Gallbladder ultrasound demonstrates multiple gallstones. I discussed this with the patient. There are no signs of infection at this time. The patient is reevaluated and has improvement in her symptoms. At this time the patient will be discharged home. She is given a prescription for [place] and Zofran. Side effect profile discussed with the patient. She doesn't an opiate start talking form. The patient is given follow-up information for Dr. Nuñez's office. She is to follow up for further surgical options. The patient understood this. She has any new or worsening symptoms she should return to the emergency room. The patient was discharged home in stable condition - Lab Data Result diagrams: 06/26/19 15:09 06/26/19 15:09 Lab Results 06/26/19 06/26/19 06/26/19 Range/Units 15:09 15:09 15:09 WBC 9.0 (3.8-10.6) k/uL RBC 4.89 (3.80-5.40) m/uL Hgb 15.0 (11.4-16.0) gm/dL Hct 47.3 H (34.0-46.0) % MCV 96.7 (80.0-100.0) fL MCH 30.6 (25.0-35.0) pg MCHC 31.6 (31.0-37.0) g/dL RDW 12.9 (11.5-15.5) % Plt Count 280 (150-450) k/uL Neutrophils % 66 % Lymphocytes % 22 % Monocytes % 8 % Eosinophils % 1 % Basophils % 1 % Neutrophils # 6.0 (1.3-7.7) k/uL Lymphocytes # 2.0 (1.0-4.8) k/uL Monocytes # 0.7 (0-1.0) k/uL Eosinophils # 0.1 (0-0.7) k/uL Basophils # 0.1 (0-0.2) k/uL Sodium 139 (137-145) mmol/L Potassium 4.0 (3.5-5.1) mmol/L Chloride 106 (98-107) mmol/L Carbon Dioxide 26 (22-30) mmol/L Anion Gap 7 mmol/L BUN 9 (7-17) mg/dL Creatinine 0.61 (0.52-1.04) mg/dL Est GFR (CKD-EPI)AfAm >90 (>60 ml/min/1.73 sqM) Est GFR (CKD-EPI)NonAf >90 (>60 ml/min/1.73 sqM) Glucose 92 (74-99) mg/dL Calcium 9.5 (8.4-10.2) mg/dL Total Bilirubin 0.5 (0.2-1.3) mg/dL AST 37 H (14-36) U/L ALT 115 H (9-52) U/L Alkaline Phosphatase 60 (38-126) U/L Total Protein 7.2 (6.3-8.2) g/dL Albumin 4.3 (3.5-5.0) g/dL Lipase 171 (23-300) U/L Urine Color Yellow Urine Appearance Clear (Clear) Urine pH 6.0 (5.0-8.0) Ur Specific Combs 1.011 (1.001-1.035) Urine Protein Negative (Negative) Urine Glucose (UA) Negative (Negative) Urine Ketones Negative (Negative) Urine Blood Negative (Negative) Urine Nitrite Negative (Negative) Urine Bilirubin Negative (Negative) Urine Urobilinogen <2.0 (<2.0) mg/dL Ur Leukocyte Esterase Negative (Negative) Urine HCG, Qual (Not Detectd) 06/26/19 Range/Units 15:09 WBC (3.8-10.6) k/uL RBC (3.80-5.40) m/uL Hgb (11.4-16.0) gm/dL Hct (34.0-46.0) % MCV (80.0-100.0) fL MCH (25.0-35.0) pg MCHC (31.0-37.0) g/dL RDW (11.5-15.5) % Plt Count (150-450) k/uL Neutrophils % % Lymphocytes % % Monocytes % % Eosinophils % % Basophils % % Neutrophils # (1.3-7.7) k/uL Lymphocytes # (1.0-4.8) k/uL Monocytes # (0-1.0) k/uL Eosinophils # (0-0.7) k/uL Basophils # (0-0.2) k/uL Sodium (137-145) mmol/L Potassium (3.5-5.1) mmol/L Chloride (98-107) mmol/L Carbon Dioxide (22-30) mmol/L Anion Gap mmol/L BUN (7-17) mg/dL Creatinine (0.52-1.04) mg/dL Est GFR (CKD-EPI)AfAm (>60 ml/min/1.73 sqM) Est GFR (CKD-EPI)NonAf (>60 ml/min/1.73 sqM) Glucose (74-99) mg/dL Calcium (8.4-10.2) mg/dL Total Bilirubin (0.2-1.3) mg/dL AST (14-36) U/L ALT (9-52) U/L Alkaline Phosphatase (38-126) U/L Total Protein (6.3-8.2) g/dL Albumin (3.5-5.0) g/dL Lipase (23-300) U/L Urine Color Urine Appearance (Clear) Urine pH (5.0-8.0) Ur Specific Combs (1.001-1.035) Urine Protein (Negative) Urine Glucose (UA) (Negative) Urine Ketones (Negative) Urine Blood (Negative) Urine Nitrite (Negative) Urine Bilirubin (Negative) Urine Urobilinogen (<2.0) mg/dL Ur Leukocyte Esterase (Negative) Urine HCG, Qual Not Detected (Not Detectd) Disposition Clinical Impression: Abdominal pain, Cholelithiasis Disposition: HOME SELF-CARE Condition: Stable Instructions (If sedation given, give patient instructions): Gallstones (ED) Additional Instructions: Please see your primary care doctor within 2-4 days. Return to the emergency room for any new or worsening symptoms. See the surgeon within the next few weeks. Prescriptions: Hydrocodone/Acetaminophen [[place] 5-325] 1 tab PO Q6HR PRN #12 tab PRN Reason: Pain Ondansetron Odt [Zofran Odt] 4 mg PO Q8HR PRN #10 tab PRN Reason: Nausea Is patient prescribed a controlled substance at d/c from ED?: Yes When asked, does pt state using other controlled substances?: No If prescribed controlled substance>3 days was MAPS reviewed?: Prescribed <3 Days If opioid is for acute pain is fill amount 7 days or less?: Yes If Rx opioid, was Start Talking consent form obtained?: Yes Referrals: None,Stated [Primary Care Provider] - 1-2 days Arlen Ribera MD [Medical Doctor] - 1-2 days Carl Nuñez MD [STAFF PHYSICIAN] - 1-2 days Time of Disposition: 17:11
[2019-06-26 17:43] VITALS: BP 146/72; PULSE 70
== END 2019-06-26 17:42 | disposition home or self-care (01) ==
LOC: EC 14:13
DX: K80.20 Calculus of gallbladder without cholecystitis without obstruction (principal); Z32.02 Encounter for pregnancy test, result negative; Z88.2 Allergy status to sulfonamides
CPT/HCPCS: 36415; 80053; 83690; 85025; 81003; 81025; 76705; 99284; 96374; 96375; 96361; J2405; J1885